=== PATIENT | female | born 1960 | race African-American/Black ===

== ENCOUNTER 2018-11-22 08:24 | Day surgery (SDC) | payer OTHER ==
[2018-11-22] VITALS (15 sets, daily range): BP systolic 109–134; BP diastolic 62–72; PULSE 62–82; RESP 7–18; Ht 157.5 cm; Wt 107.5 kg
[~2018-11-22] VITALS: Ht 157.5 cm; Wt 107.5 kg
[2018-11-22] MEDS ORDERED: LOSA50TA14 PO (09:30)
[2018-11-22] MEDS ORDERED: ERGO2000 PO (09:30)
[2018-11-22] MEDS ORDERED: HYDR25TA6 PO (09:31)
[2018-11-22] MEDS ORDERED: PARO10TA57 PO (09:31)
--- NOTE | 2018-11-22 13:38 | PREAC ---
Date/Time of Note Date/Time of Note DATE: 11/22/18 TIME: 13:35 Anesthesia Eval and Record Evaluation Time Pre-Procedure Interview DATE: 11/22/18 TIME: 13:35 Age 58 Sex female NPO: 8 hrs Preoperative diagnosis history of breast cancer Planned procedure removal of bilateral breast programming specialist Past Medical History Past Medical History: Includes Cardio: HTN GI: Morbid obesity Psych: Depression Surgery & Anesthesia Issues No known issue Meds Anticoagulation: No Beta Matthew within 24 hr: No Reason Beta Matthew not given: Pt. not on B-Matthew Reported Medications Paroxetine Hcl* (Paxil*) 10 Mg Tablet, 10 MG PO DAILY, TAB 11/22/18 Hydrochlorothiazide* (Hydrochlorothiazide*) 25 Mg Tab, 25 MG PO DAILY, #30 TAB 11/22/18 Ergocalciferol (Vitamin D2) (VITAMIN D2) 2,000 Unit Tablet, 2000 UNIT PO DAILY, TAB 11/22/18 Losartan Potassium* (Losartan Potassium*) 50 Mg Tablet, 50 MG PO DAILY, TAB 11/22/18 Meds reviewed: Yes Allergies Coded Allergies: amoxicillin (Verified Allergy, Unknown, 11/22/18) Allergies Reviewed: Yes Labs/Studies Labs Reviewed: Reviewed by anesthesiologist test: N/A Studies: ECG, CXR Pre-procedure Exam Last vitals Vital Signs Date Temp Pulse Resp B/P (MAP) Pulse Ox O2 O2 Flow FiO2 Time Delivery Rate 11/22/18 97.7 82 16 117/68 96 09:16 (84) Airway: Adequate mouth opening, Adequate thyromental dist Mallampati: Mallampati II Teeth: Normal Lung: Normal Heart: Normal ASA Physical Status ASA physical status: 3 Emergency: None Planned Anesthetic General/MAC: LMA Planned Pain Management Parenteral pain med Pre-operative Attestations Prior to commencing anesthesia and surgery, the patient was re-evaluated, there was verification of: *The patient's identity *The results of appropriate recent lab work and preoperative vital signs *The above evaluation not changing prior to induction *Anesthetic plan, risk benefits, alternative and complications discussed with patient/family; questions answered; patient/family understands, accepts and wishes to proceed. LD REIS MD Nov 22, 2018 13:38
[2018-11-22] MEDS ORDERED: BUPIVACAINE 0.25%/EPI (SDV) 30 ML INJ ONE (13:52)
[2018-11-22] MEDS ORDERED: POLYMYXIN/BACITRACIN 1L IRRIG ONE (13:52)
[2018-11-22] MEDS ORDERED: GENTAMICIN 80 MG INJ ONE (13:52)
--- NOTE | 2018-11-22 14:17 | HPN ---
Date/Time of Note Date/Time of Note DATE: 11/22/18 TIME: 14:17 Interval H&P Admission Note Pt. seen H&P reviewed: No system changes MADELAINE VELÁZQUEZ MD Nov 22, 2018 14:17
[2018-11-22] MEDS ORDERED: morphine 2 MG INJ IV PRN (14:30)
[2018-11-22] MEDS ORDERED: HYDROCODONE/APAP (5/325) TAB PO PRN (14:30)
[2018-11-22] MEDS ORDERED: ACETAMINOPHEN 325 MG TAB PO PRN (14:30)
[2018-11-22] MEDS ORDERED: ONDANSETRON 4 MG INJ IV PRN ×2 (14:30→15:00)
--- NOTE | 2018-11-22 14:33 | OPR ---
Date/Time of Note Date/Time of Note DATE: 11/22/18 TIME: 14:28 Operative Report Free Text/Dictation Plastic Surgery Operative Report Preoperative diagnosis: History of breast cancer Postoperative diagnosis: Same Procedure: Bilateral tissue medical office professional instructor removal, no replacement Surgeon:john Jackson.:ARIES leal Anesthesia: gen EBL:min IV fluids: per flow sheet Findings: n/a Complications:none Dispo: home Indications for procedure: Patient presents to undergo removal of her bilateral breast tissue expanders. She will not undergo reconstruction at this time. The risks, benefits, alternatives of performing this procedure were discussed with the patient including the risks of bleeding, infection, wound healing problems, asymmetry, excess skin along her chest. We specifically discussed that we will not perform definitive reconstruction at this time and she may follow-up in the future if she would like to remove the extra skin at her chest. She states that she understands these risks and would like to proceed with the procedure. All questions were answered and no guarantees were given with regards to the outcome of this procedure. Description of procedure: The patient was brought to the operating room at [facility] where general anesthesia was induced and she was prepped and draped in usual sterile fashion. 5 cc of 0.25% Marcaine with 1: 200,000 epinephrine were injected into the planned incision site in the prior mastectomy scar of each breast. The first, attention was turned to the left breast where the incision was made with a 15 blade and electrocautery was used to dissect into the medical office professional instructor pocket. The pocket was opened and the medical office professional instructor was removed. A limited inferior capsulotomy was carried out to help fluid egress. Hemostasis was achieved with electrocautery and the pocket was irrigated with saline. Incision was then closed with 3-0 Vicryl suture and 4-0 Monocryl suture. A similar procedure was carried out on the contralateral breast. Incision was made with a 15 blade and electrocautery was used to dissect into the medical office professional instructor pocket. The pocket was opened and the medical office professional instructor was removed. A limited inferior capsulotomy was carried out to help fluid egress. Hemostasis was achieved with electrocautery and the pocket was irrigated with saline. The incision was then closed with 3-0 Vicryl suture and 4-0 Monocryl suture. ARIES leal assisted with this procedure Preoperative Diagnosis History of breast cancer Postoperative Diagnosis Same Operation/Procedure Performed Bilateral medical office professional instructor removal, no replacement Surgeon see signature line Diamond Die Polisher ARIES leal Anesthesia Type: general Estimated Blood Loss: minimal Transfusion none Specimen none Grafts/Implants none Complications none Pt Condition Post Procedure: stable Procedure Description see dictation MADELAINE VELÁZQUEZ MD Nov 22, 2018 14:33
[2018-11-22] MEDS ORDERED: MIDAZOLAM 1 MG/ML 2 ML INJ ONE (14:35)
[2018-11-22] MEDS ORDERED: LIDOCAINE 2% (SDV) 5 ML INJ ONE (14:49)
[2018-11-22] MEDS ORDERED: PROPOFOL 20 ML ONE (14:49)
[2018-11-22] MEDS ORDERED: FENTAnyl 50 MCG/ML VIAL ONE (14:51)
[2018-11-22] MEDS ORDERED: CLINDAMYCIN 900 MG/D5W (PMX) 50 ML IVPB ONE (14:53)
[2018-11-22] MEDS ORDERED: DEXAMETHASONE 4 MG/ML 5 ML INJ ONE (14:53)
[2018-11-22] MEDS ORDERED: ONDANSETRON 4 MG INJ ONE (14:53)
[2018-11-22] MEDS ORDERED: FAMOTIDINE 20 MG INJ ONE (14:53)
[2018-11-22] MEDS ORDERED: HYDROmorphONE 1 MG/5 ML IV SYRINGE IV PRN ×2 (15:00)
[2018-11-22] MEDS ORDERED: MEPERIDINE 25 MG INJ IV PRN (15:00)
[2018-11-22] MEDS ORDERED: hydrALAzine 20 MG INJ IV PRN (15:00)
[2018-11-22] MEDS ORDERED: OXYCODONE/ACETAMINOPHEN (5/325) TAB PO PRN (15:00)
[2018-11-22] MEDS ORDERED: PROCHLORPERAZINE 10 MG INJ IV PRN (15:00)
[2018-11-22] MEDS ORDERED: FENTAnyl 50 MCG/ML VIAL IV PRN (15:00)
[2018-11-22] MEDS ORDERED: DIPHENHYDRAMINE 50 MG INJ IV PRN (15:00)
[2018-11-22] MEDS ORDERED: LABETALOL HCL 20MG INJ IV PRN (15:00)
--- NOTE | 2018-11-22 15:37 | PAC ---
Date/Time of Note Date/Time of Note DATE: 11/22/18 TIME: 15:37 Post-Anesthesia Notes Post-Anesthesia Note Last documented vital signs Vital Signs Date Temp Pulse Resp B/P (MAP) Pulse Ox O2 O2 Flow FiO2 Time Delivery Rate 11/22/18 97.7 82 16 117/68 96 09:16 (84) Activity: WNL Respiratory function: WNL Cardiovascular function: WNL Mental status: Baseline Pain reasonably controlled: Yes Hydration appropriate: Yes Nausea/Vomiting absent: Yes Comments Bp: 115/70 HR: 86 RR: 15 T: 97.9 SaO2: 100% LD REIS MD Nov 22, 2018 15:37
[2018-11-22] MEDS: HYDROmorphONE 1 MG/5 ML IV SYRINGE IV PRN ×2 (15:44→16:08)
== END 2018-11-22 18:17 | disposition home or self-care (01) ==
LOC: SDS 08:24
PROVIDERS: ATTEND Surgery Plastic and Reconstructive Surgery
DX: Z90.13 Acquired absence of bilateral breasts and nipples (principal); Z85.3 Personal history of malignant neoplasm of breast; I10 Essential (primary) hypertension; F32.9 Major depressive disorder, single episode, unspecified; E66.01 Morbid (severe) obesity due to excess calories
CPT/HCPCS: 11971; J1100; J1170; J1580; J2250; J2405; J3010; Z7512; Z7610